=== PATIENT | female | born 1950 | race Caucasian/White ===

== ENCOUNTER → 2020-06-29 | Outpatient (CLI) | payer OTHER | LOC: LAB 13:27 | PROVIDERS: ATTEND Anesthesiology | DX: Z01.812 Encounter for preprocedural laboratory examination (principal); Z20.828 Contact with and (suspected) exposure to other viral communicable diseases ==

== ENCOUNTER → 2021-07-06 | Outpatient (CLI) | payer OTHER ==
[~2021-07-06] MED LIST: ASA81BEC PO; CALCIUM500 MG PO; CLARITIN-D 121 EAC1 PO; DICLOFENAC SOD50 M1 PO; FLONASE 0.05%50 MCG NARES; LIPITOR40 MG PO; LISINOPRIL20 MG PO; MULTI VITAMIN1 EACH PO; VITAMIN B-121000 MCG PO; VITAMIN D350 MC3 PO
[2021-07-06 11:37] LABS: HEMATOCRIT 39.8 % (37.0-47.0); HEMOGLOBIN 12.8 gm/dL (12.0-15.0); MCH 30.3 pg (26.0-34.0); MCHC 32.2 g/dL (28.0-37.0); RBC 4.24 mil/uL (4.20-5.00); RDW 14.6 % (10.5-14.5); WBC 6.5 thou/uL (4.0-11.0)
[2021-07-06 11:49] LABS: INR 1.03; PROTIME 11.2 Seconds (10.5-12.1)
[2021-07-06 11:51] LABS: URINE BILIRUBIN NEGATIVE (Negative); URINE BLOOD NEGATIVE (Negative); URINE CLARITY CLEAR; URINE COLOR YELLOW; URINE GLUCOSE-RANDOM* NEGATIVE (Negative); URINE KETONES NEGATIVE (Negative); URINE NITRITE-REFLEX NEGATIVE (Negative); URINE PROTEIN (DIPSTICK) NEGATIVE (Negative); URINE UROBILINOGEN 0.2 E.U./dl (0.2-1.0)
[2021-07-06 11:57] LABS: ALBUMIN 3.5 g/dL (3.4-5.0); CALCIUM 8.6 mg/dL (8.5-10.1); CREATININE 0.9 mg/dL (0.6-1.0); POTASSIUM 4.1 mmol/L (3.5-5.1)
[2021-07-06 11:58] LABS: URINE LEUKOCYTES-REFLEX 1+ (Negative)
[2021-07-06 12:00] LABS: SQUAMOUS 4-10 Moderate /LPF (0-3); URINE RBC None Seen /HPF (NONE SEEN); URINE WBC-REFLEX 6-15 Few /HPF (0-5)
[2021-07-06 12:01] LABS: BACTERIA-REFLEX 1-9 Few /HPF (None Seen); CRYSTALS None Seen /LPF (None Seen)
--- NOTE | 2021-07-06 14:03 | EKG ---
[facility] [place] [address] ELECTROCARDIOGRAM REPORT Name: JEMALMICAH Room #: REG DESTINY Holden#: [id number] Admission: 07/06/21 Attend Phys: Khai Dawn MD Discharge: Date of : 50 Report #: [id number] [facility] Test Date: 2021-07-06 Test Time: 11:14:08 Pat Name: MICAH JOAQUIN Department: Room: Gender: F Deburrer Machine: FAYE DUMAS : 1950 Requested By: Khai Dawn Order Number: [id number] MD: Brian Figueroa Measurements Intervals [place] Rate: 61 P: 41 NE: 145 QRS: 3 QRSD: 97 T: 21 QT: 434 QTc: 438 Interpretive Statements Sinus arrhythmia Abnormal R-wave progression, early transition No previous ECG available for comparison Electronically Signed On 07-06-2021 14:03:15 SPINDLE SANDER by Brian Figueroa [email or web address] <ELECTRONICALLY SIGNED> By: Brian Figueroa MD, [facility] 07/06/21 1403 1114 1114 Brian Figueroa MD, FACC /EPI
== END ==
LOC: PAC 10:40
PROVIDERS: ATTEND Orthopaedic Surgery
DX: I49.8 Other specified cardiac arrhythmias (principal); M17.11 Unilateral primary osteoarthritis, right knee

== ENCOUNTER 2021-07-14 11:27 | Inpatient (IN) | payer OTHER ==
[~2021-07-14] VITALS: Ht 165.1 cm; Wt 80.7 kg
[2021-07-14 13:40] VITALS: BP 135/65
[2021-07-14 20:36] VITALS: BP 126/56
--- NOTE | 2021-07-14 21:36 | NUR ---
PT ADMITTED TO THE UNIT AT APPROXIMATELY 1830. PT IS A/O X4 AND IS UP WITH ASSISTANCE FOLLOWING PROCEDURE TO KNEE. DRSG IS C/D/I WITH NO DRAINAGE. ROOM AIR, VSS, AFEBRILE. C/O PAIN. SCHEDULED PAIN MEDICATION GIVEN DIRECTED. PT HAS BEEN UP TO THE [facility] SINCE ARRIVAL. ADMISSION IS COMPLETE. PT HAS EATEN AND TOLERATED WELL. FALL PRECAUTIONS IN PLACE, CALL LIGHT IS WITHIN REACH . SCD'S, EVANGELINA HOSE, AND POLAR PACK IN PLACE.
[2021-07-15 08:02] VITALS: BP 124/68
--- NOTE | 2021-07-15 09:20 | NUR ---
Chart review. 71 year old female. RT total knee. A & o x 4 and able to make her needs known. Intro to cm. Lives home alone, few steps to enter home. Has fww at home. Independent. Manage own medication, drives vehicle, plans on dc tomorrow. Going to go to [facility] [place]. Will cont following if needs arise.
--- NOTE | 2021-07-15 09:30 | NUR ---
A/O X 4. ROOM AIR. STAND BY ASSIST WITH WALKER. RIGHT TOTAL KNEE-MARCELLO DRESSING-DRY, CLEAN, INTACT, POLAR PACK IN PLACE, BILATERAL LEG SCDS AND TEDS IN PLACE. CONT OF B/B. LEFT HAND IV WITH D5 1/2 NS INFUSING @ 100 MLS/HR. PAIN RIGHT KNEE 4/10 MORPHINE GIVEN FOR PAIN.
[2021-07-15 16:36] VITALS: BP 117/54
[2021-07-15 19:55] VITALS: BP 104/45
--- NOTE | 2021-07-16 01:36 | NUR ---
ASSUMED CARE AT 1930 OF 07/15. PATIENT IS A&OX4, ON ROOM AIRE, DENIES SOB. ABLE TO MAKE NEEDS KNOWN. C/O PAIN IN RLE, MANAGED WITH SCHEDULED PAIN MEDICATION AND COLD THERAPY. MARCELLO DRESSING OVER RIGHT KNEE IS CDI. LEFT HAND PERIPHERAL IV IS INPLACE, PATENT AND SALINE LOCKED. FALL PRECAUTIONS IN PLACE, CALL LIGHT WITHIN REACH. WILL CONTINUE TO MONITOR.
[2021-07-16 07:11] VITALS: BP 106/65
--- NOTE | 2021-07-16 10:41 | NUR ---
Assumed care of pt at 0700. Pt a&ox4. Pt c/o rt knee pain. Prn pain medications administered. Up SBA assist with walker and gait-belt. Polar care in place. EVANGELINA valdivia and SCDs in place. Pt will work with physical therapy this am. Possible c/d to home if cleared by PT and pain is controlled.
--- NOTE | 2021-07-16 14:19 | NUR ---
Anticipated dc home today. No needs, will cont following if needs arise
[2021-07-16 16:27] VITALS: BP 118/46
[2021-07-16 19:12] VITALS: BP 150/67
[2021-07-16 20:10] VITALS: BP 150/67
--- NOTE | 2021-07-17 01:07 | NUR ---
UPON SHIFT ASSESSMENT, PT AOX4. PT REPORTING 7/10 RLE PAIN. PT RECEIVING SCHEDULED PO MORPHINE BID AND PRN PO NORCO Q4HR WITH PRN PO APAP Q3HR, PRN PO VISTARIL Q4HR, AND PRN IV MORPINE Q1HR AVAILABLE. PT DENIES SOB WHILE ON ROOM AIR. PT TOLERATING PO INTAKE OF FLUIDS AND REGULAR DIET WITHOUT ISSUE. PT WITHOUT NAUSEA OR EMESIS. PT AMBULATING WITH WALKER AND X1 ASSIST TO BEDSIDE COMMODE, RESTING IN BED OTHERWISE. FREQUENT REPOSITIONING ENCOURAGED WHILE IN BED, PT NOTED TO SHIFT SLIGHTLY ON HER OWN, REFUSING REPOSITIONING ASSISTANCE. SENSATION INTACT, CAPILLARY REFILL LESS THAN 3SEC, PERIPHERAL PULSES FAINT IN ALL EXTREMITIES. EVANGELINA HOSES AND POLAR PACK REMAIN IN PLACE. PT ENCOURAGED TO NOTIFY STAFF FOR ALL NEEDS, CALL LIGHT WITHIN REACH, BED ALARM ON, BED LOCKED IN LOWEST POSITION, FREQUENT MONITORING WILL CONTINUE.
[2021-07-17 04:00] VITALS: BP 146/55
[2021-07-17 08:18] VITALS: BP 129/65
--- NOTE | 2021-07-17 09:34 | NUR ---
Assumed care of pt at 0700. Pt a&ox4. Pain controlled with prn pain medications. EVANGELINA yazane and SCDs in place. Polar care in place. Pt waiting to work with physical therapy today and possibly go home after. Call light within reach. Fall precautions in place. Will continue to monitor.
[2021-07-17 10:51] VITALS: BP 129/65
--- NOTE | 2021-07-19 09:55 | O ---
[facility] [place] [address] OPERATIVE REPORT Name: JEMALARKANSAS Room #: 434-[facility] Carolyn MShawn#: [id number] Admission: 07/14/21 Attend Phys: Khai Dawn MD Discharge: 07/17/21 Date of : 50 Report #: [id number] THIS REPORT FOR: cc: Kelsea Lema Cassandra M. DO Abraham, Scott M. MD ~ DATE OF SERVICE: 07/14/2021 PREOPERATIVE DIAGNOSIS: Right knee valgus osteoarthritis. POSTOPERATIVE DIAGNOSIS: Right knee valgus osteoarthritis. PROCEDURE: Right total knee arthroplasty using Navio robotic assistance. SURGEON: Khai Dawn MD SENIOR MANAGER CREATIVE SERVICES: Eugenia Levy PA-C INDICATION FOR SENIOR MANAGER CREATIVE SERVICES: Throughout the case, extensive retraction, manipulation of the knee was required. This was afforded to me by my assistant site manager. ANESTHESIA: LMA with adductor canal block. IMPLANTS: A [employer]hew size 5 Journey II BCS Oxinium femur, size 4 tibia, size 13 constrained polyethylene and size 32 patella. TOURNIQUET TIME: 50 minutes. ESTIMATED BLOOD LOSS: 25 mL COMPLICATIONS: None. SPECIMENS: None. CONDITION UPON LEAVING THE OR: Stable. INDICATIONS FOR PROCEDURE: The patient is a 71-year-old female with severe right knee valgus osteoarthritis who failed conservative measures for this and after discussion with her, she elected for right total knee arthroplasty. DESCRIPTION OF PROCEDURE: Risks, benefits, alternatives, complications were discussed in detail with the patient including, but not limited to risk of anesthesia, risk of damage to nerves, arteries, blood vessels, risk for infection, bleeding, risk for continued knee pain, need for reoperation. Informed consent was obtained from the patient. The right knee was appropriately marked in the preoperative holding area. IV Ancef was given for [facility] [address] [place] [address] OPERATIVE REPORT Name: JEMALMICAH Room #: 434-[facility] Carolyn Holden#: [id number] Admission: 07/14/21 Attend Phys: Khai Dawn MD Discharge: 07/17/21 Date of : 50 Report #: [id number] preoperative antibiotics. Adductor canal block was placed by Anesthesia. She was brought to the operating room and placed in the supine position on the operating table. LMA anesthesia was induced without complication. Tourniquet was placed on the right thigh. Right lower extremity was prepped and draped in normal sterile fashion. Timeout was performed properly identifying the patient and procedure as well as the instrumentation and implants. All in the operating room were in agreement. Right lower extremity was exsanguinated, tourniquet was inflated. Tourniquet time was 50 minutes. Standard midline approach to the knee was made with 10 blade through the skin. Dissection was taken down sharply to the fascia and deep flaps were developed medially and laterally. Fresh 10 blade was used to make a medial parapatellar arthrotomy and the knee was inspected. There was severe lateral compartment osteoarthritis with moderate medial compartment and patellofemoral compartment osteoarthritis. ACL and PCL were removed sharply. Reference pins were placed in the femur and the tibia. The knee was digitally mapped using Magzter robotic system. Intraoperative plan was made. We sized the size 5 femur, size 4 tibia and a 10 spacer. After acceptance of the intraoperative plan, the distal femoral cut was made with Navio bur. Distal femoral cutting block was pinned in place and chamfer cuts were made. Attention was turned to the tibia. Remainder of the menisci removed with Bovie cautery. Tibial resection guide was pinned in place using Navio for placement and tibial resection was made. Flexion and extension gaps were checked and found to have good balance laterally in flexion and extension. Medially, she did open up and this was not surprising given her underlying valgus deformity. It was felt we can make up for this with a constrained implant. Tibia was sized, found to be a size 4. Size 4 tibial trial was placed, pinned and punched. Size 5 femoral trial was placed, box cut was made. This was then trialed with a size 10 up to a size 13 polyethylene and a size 13 polyethylene demonstrated the best range of motion and stability laterally with up to 1 mm laxity laterally and medially, she did open up to about 3 mm and again, it was felt we could make up for this with a constrained implant. A 9 mm of bone was resected from the posterior surface of the patella and a size 32 patellar trial button was placed. Knee was taken through range of motion, found to be stable, found to have good patellar tracking. Trial components were removed. Bone ends were thoroughly irrigated with normal saline. A final size 4 tibia, size 5 Journey II BCS cobalt chrome femur and a size 32 patella were cemented in place using standard cementation techniques. While the cement cured, a periarticular injection consisting of morphine, ropivacaine, epinephrine, Toradol was placed around the knee joint capsule. After the cement cured, the tourniquet was deflated. Hemostasis was obtained with Bovie cautery. Final size 13 constrained polyethylene was placed. A gram of vancomycin was placed deep in the joint. Fascia was closed with 0 Vicryl. Skin was closed with 2-0 Vicryl, skin staple and a MARCELLO dressing was applied. The patient tolerated this [address] [address] OPERATIVE REPORT Name: MICAH JOAQUIN Room #: 434-P [facility] Carolyn Holden#: [id number] Admission: 07/14/21 Attend Phys: Khai Dawn MD Discharge: 07/17/21 Date of : 50 Report #: [id number] procedure well and went to recovery room under care of Anesthesia postoperatively. <ELECTRONICALLY SIGNED> By: Khai Dawn MD 07/19/21 0955 [id number] 1621 Khai Dawn MD /nt
== END 2021-07-17 12:46 | disposition home or self-care (01) | DRG 470 ==
LOC: OR → 4S 17:46 → OR 17:47 → 4S 07-16 14:55
PROVIDERS: ADMIT Orthopaedic Surgery; ATTEND Orthopaedic Surgery
PROC: 8E0Y0CZ Robotic Assisted Procedure of Lower Extremity, Open Approach (ICD-10-PCS; principal; 2021-07-14)
PROC: 0SRC069 Replacement of Right Knee Joint with Oxidized Zirconium on Polyethylene Synthetic Substitute, Cemented, Open Approach (ICD-10-PCS; principal; 2021-07-14)
PROC: 3E0T3BZ Introduction of Anesthetic Agent into Peripheral Nerves and Plexi, Percutaneous Approach (ICD-10-PCS; principal; 2021-07-14)
DX: M17.11 Unilateral primary osteoarthritis, right knee (principal); Z60.2 Problems related to living alone; Z20.822 Contact with and (suspected) exposure to COVID-19; M21.061 Valgus deformity, not elsewhere classified, right knee; M81.0 Age-related osteoporosis without current pathological fracture; Z88.1 Allergy status to other antibiotic agents; Z82.49 Family history of ischemic heart disease and other diseases of the circulatory system
CPT/HCPCS: 10195; 50010; 50101; 50415; 50954; 51130; 51225; 51412; 53000; 53078; 56527; 56528; 57095; 57103; 57110; 57127; 57180; 58239; 59024; 62110; 62900; 64043; 65060; 70005